=== PATIENT | female | born 1985 | race Caucasian/White ===

== ENCOUNTER 2024-02-09 17:25 | Outpatient (CLI) | payer MEDICARE, SELFPAY | END 2024-02-09 17:26 | disposition home or self-care (01) | LOC: AMB 02-12 19:10 | PROVIDERS: Visit Provider Family Medicine | DX: F29 Unspecified psychosis not due to a substance or known physiological condition (principal) | CPT/HCPCS: A0425; A0429 ==

== ENCOUNTER 2024-02-09 17:44 | Emergency (ER) | payer MEDICARE, SELFPAY ==
[2024-02-09 17:55] VITALS: BP 128/74; PULSE 111; RESP 22; TEMP 36.1; O2SAT 98; BMI 29.0
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
[2024-02-09] MEDS: LORazepam 2 MG/ML inj 1 MG IVP (18:50)
[2024-02-09] MEDS: ONDANSETRON 2 MG/ML inj 4 MG IVP (18:54)
[2024-02-09] MEDS: 0.9 % SODIUM CHLORIDE 1000 ml 1,000 ML IV (19:05)
[2024-02-09 19:09] LABS: Bilirubin Urine Negative (Negative); Blood Urine Trace-lysed (Negative); Color Urine Yellow (Yellow); Glucose Urine Negative (Negative); Ketones Urine Negative (Negative); Leukocyte Esterase Urine Negative (Negative); Nitrite Urine Positive (Negative); Protein Urine Trace (Negative); Specific Gravity Urine >= 1.030 (1.000-1.030); Urobilinogen Urine 0.2 (0.2-1.0); pH Urine 5.5 (5.0-8.5)
[2024-02-09 19:15] LABS: Appearance Urine Clear (Clear)
[2024-02-09 19:17] LABS: Amphetamine Screen Urine POSITIVE (Negative); Barbiturate Screen Urine Negative (Negative); Benzodiazepines Screen Urine POSITIVE (Negative); Cannabinoid Screen Urine POSITIVE (Negative); Cocaine Screen Urine Negative (Negative); Methadone Screen Urine Negative (Negative); Methamphetamines Screen Urine Negative (Negative); Opiate Screen Urine Negative (Negative); Oxycodone Screen Urine Negative (Negative); Phencyclidine Screen Urine Negative (Negative); Tricyclic Antidepressant Urine Negative (Negative)
[2024-02-09 19:18] LABS: Basophils Absolute Auto 0.02 K/uL (0.00-0.30); Basophils Percent Auto 0.2 % (0.0-3.0); Eosinophils Absolute Auto 0.06 K/uL (0.00-0.50); Eosinophils Percent Auto 0.6 % (0.0-7.0); Hematocrit 37.6 % (33.0-51.0); Hemoglobin* 12.2 gm/dL (12.0-16.0); Immature Granulocytes Abs Auto 0.02 K/uL (0.00-0.30); Immature Granulocytes Pct Auto 0.2 %; Lymphocytes Percent Auto 12.8 % (20-44); Mean Corpuscular HGB Conc 32 gm/dL (32-36); Mean Corpuscular Hemoglobin 28 pg (26-34); Mean Corpuscular Volume 86 fL (80-100); Monocytes Percent Auto 4.2 % (0.0-11.0); Platelet Count* 329 K/uL (140-440); RDW Coefficient of Variation % 14.3 % (11.5-15.5); Red Blood Count 4.35 m/uL (4.00-5.20); White Blood Count* 9.86 K/uL (4.50-11.00)
[2024-02-09] MEDS: OLANZapine 5 MG TAB.RAPDIS PO ×2 (19:20→20:31)
[2024-02-09 19:29] LABS: Slide Review Reflex No
[2024-02-09 19:32] LABS: Albumin* 4.9 g/dL (3.3-5.0); Chloride* 100 mmol/L (96-114)
[2024-02-09 19:33] LABS: Potassium* 3.7 mmol/L (3.6-5.1); Sodium* 134 mmol/L (135-149)
[2024-02-09 19:35] LABS: Anion Gap 11 mEq/L (7-15); Bilirubin Total* 0.3 mg/dL (0.1-1.5); Carbon Dioxide* 23 mmol/L (20-32); Creatinine* 1.2 mg/dL (0.5-1.5); Est. Creatinine Clearance* 62.42; Estimated Glomerular Filt Rate 60 ml/min; Total Protein* 7.4 g/dL (6.0-8.3)
[2024-02-09 19:36] LABS: Alanine Aminotransferase* 28 U/L (4-35); Alkaline Phosphatase* 68 U/L (40-150); Aspartate Amino Transferase* 31 U/L (12-35); Blood Urea Nitrogen* 22 mg/dL (5-24); Calcium* 9.7 mg/dL (8.4-10.6); Glucose* 126 mg/dL (60-115)
[2024-02-09 19:38] LABS: Acetaminophen* < 10.0 ug/mL (10.0-30.0); Ethanol* < 0.01 % (0.01-0.03); Salicylate* < 1.0 mg/dL (1.0-10)
[2024-02-09 19:43] LABS: Ur HCG Qualitative* Negative (Negative)
[2024-02-09 19:44] LABS: Bacteria Urine Many; RBC Urine 0-2 (0-2); Squamous Epithelial Cell Urine Few (None-Few); WBC Urine 0-2 (0-5)
--- NOTE | 2024-02-09 19:47 | ED.NURSE ---
Pt boyfriend Eduardo in room with pt. Pt is calm and cooperative at this time. Pt given food.
[2024-02-09 21:09] LABS: Free T4 Free Thyroxine* 0.91 ng/dL (0.70-1.85)
[2024-02-09 23:16] LABS: PCR FLU A Negative PCR FLU A (Negative); PCR FLU B Negative PCR FLU B (Negative); PCR RSV Negative PCR RSV (Negative); SARS PCR* Negative SARS-CoV-2 (Negative)
[2024-02-10 08:30] VITALS: BP 121/95; PULSE 82; RESP 18; TEMP 37.2; O2SAT 99
[2024-02-10] MEDS: ONDANSETRON ODT 4 MG TAB PO (09:51)
[2024-02-10] MEDS: OMEPRAZOLE 20 MG CAPSULE DR PO (09:52)
[2024-02-10] MEDS: buPROPion HCL SR 150 MG TAB PO (09:52)
[2024-02-10] MEDS: CYANOCOBALAMIN (VITAMIN B-12) 500 MCG TABLET 1000 MCG PO (10:43)
[2024-02-10] MEDS: clonazePAM 0.5 MG TABLET 1 MG PO (10:55)
== END 2024-02-10 11:26 ==
PROVIDERS: Family Medicine; Emergency Provider Student in an Organized Health Care Education/Training Program
DX: F23 Brief psychotic disorder (principal)
CPT/HCPCS: 36415; 80053; 80143; 80179; 80306; 81001; 81025; 82077; 83735; 84439; 84443; 85025; 87086; 87186; 87631; 96374; 96375; 99284; 99285; A9270; J2060; J2405; J7030; S0106

== ENCOUNTER 2024-02-10 11:19 | Outpatient (CLI) | payer OTHER, SELFPAY | END 2024-02-10 11:20 | disposition home or self-care (01) | LOC: AMB 02-23 23:52 | PROVIDERS: Visit Provider Student in an Organized Health Care Education/Training Program | DX: F23 Brief psychotic disorder (principal) | CPT/HCPCS: A0425; A0429 ==

== ENCOUNTER 2024-03-09 14:27 | Outpatient (CLI) | payer OTHER, SELFPAY | END 2024-03-09 14:28 | disposition home or self-care (01) | PROVIDERS: Visit Provider Nurse Practitioner Family | DX: R30.0 Dysuria (principal); R10.9 Unspecified abdominal pain; Z87.440 Personal history of urinary (tract) infections; R35.89 Other polyuria | CPT/HCPCS: 87086; 87186 ==

== ENCOUNTER 2024-12-13 11:26 | Outpatient (CLI) | payer OTHER, SELFPAY ==
--- NOTE | 2024-12-13 12:58 | P.ANES_ITS ---
Anesthesia Charges Start Date/Time Anesthesia Start Date: 12/13/24 Anesthesia Start Time: 12:55 Stop Date/Time Anesthesia Stop Date: 12/13/24 Anesthesia Stop Time: 13:41 Coding CPT Codes CPT Codes: ANES UPR GI NDSC PX NOS - 41057 ([id number]) P3 - PATIENT W/SEVERE SYS DISEASE, QK - PSYCHOLOGY ASSISTANT 2-4 CNCRNT ANES PROC, QX - PLASTIC WELDER SVC W/ MD MED DIRECTION
--- NOTE | 2024-12-13 12:58 | W.ANESCHARGE ---
Anesthesia Charges Start Date/Time Anesthesia Start Date: 12/13/24 Anesthesia Start Time: 12:55 Stop Date/Time Anesthesia Stop Date: 12/13/24 Anesthesia Stop Time: 13:41 Coding CPT Codes CPT Codes: ANES UPR GI NDSC PX NOS - 82061 ([id number]) P3 - PATIENT W/SEVERE SYS DISEASE, QK - RESIDENT CARE COORDINATOR 2-4 CNCRNT ANES PROC, QX - SPANISH TRANSLATOR SVC W/ MD MED DIRECTION
--- NOTE | 2024-12-13 13:45 | P.ANES_ITS ---
Anesthesia Charges Start Date/Time Anesthesia Start Date: 12/13/24 Anesthesia Start Time: 12:55 Stop Date/Time Anesthesia Stop Date: 12/13/24 Anesthesia Stop Time: 13:41 Coding CPT Codes CPT Codes: ANES UPR GI NDSC PX NOS - 43853 ([id number]) P3 - PATIENT W/SEVERE SYS DISEASE, QK - PASTRY ASSISTANT 2-4 CNCRNT ANES PROC, QX - WEIGHT INSPECTOR SVC W/ MD MED DIRECTION
--- NOTE | 2024-12-13 13:45 | W.ANESCHARGE ---
Anesthesia Charges Start Date/Time Anesthesia Start Date: 12/13/24 Anesthesia Start Time: 12:55 Stop Date/Time Anesthesia Stop Date: 12/13/24 Anesthesia Stop Time: 13:41 Coding CPT Codes CPT Codes: ANES UPR GI NDSC PX NOS - 57007 ([id number]) P3 - PATIENT W/SEVERE SYS DISEASE, QK - UM NURSE 2-4 CNCRNT ANES PROC, QX - TALENT ACQUISITION ASSOCIATE SVC W/ MD MED DIRECTION
== END 2024-12-13 11:27 | disposition home or self-care (01) ==
LOC: OP CLINIC 11:31
PROVIDERS: Visit Provider Internal Medicine Gastroenterology
DX: R10.13 Epigastric pain (principal); R13.10 Dysphagia, unspecified; Z98.84 Bariatric surgery status
CPT/HCPCS: 00731; 43239; 88305; J2405; J2704